=== PATIENT | male | born 1950 | race Caucasian/White ===

== ENCOUNTER 2019-03-25 08:32 | Day surgery (SDC) | payer MEDICARE, BC ==
[~2019-03-25 08:32] MED LIST: LIDOCAINE HCL 1% MPF 30 SOL ONE; PROPOFOL 500 MG/50 ML EMU IV ONE
[2019-03-25 10:52] VITALS: RESP 18; TEMP 97.4
[2019-03-25 11:02] VITALS: BP 106/60; PULSE 49; O2SAT 97
== END 2019-03-25 11:15 | disposition home or self-care (01) | DRG 951 ==
LOC: SURG 08:32
PROVIDERS: ATTEND Surgery
DX: Z12.11 Encounter for screening for malignant neoplasm of colon (principal); Z86.010 Personal history of colon polyps; D12.5 Benign neoplasm of sigmoid colon
CPT/HCPCS: J2001; J2704